=== PATIENT | male | born 1965 | race Caucasian/White ===

== ENCOUNTER 2019-02-21 07:54 | Outpatient (CLI) | payer BC ==
--- NOTE | 2019-02-21 09:04 | ULT ---
US Abdominal HISTORY: Right-sided abdomen pain. COMPARISON: None. FINDINGS: Real-time imaging of the pelvis shows the gallbladder has been removed. The common duct is 5 to 6 mm. The liver measures 17 cm in length. The spleen measures 9.8 cm. The pancreas is almost completely obscured. Abdominal aorta and IVC regions are normal. Right and left kidneys are within normal limits in size and not obstructed. IMPRESSION: Postcholecystectomy change.
== END 2019-02-21 07:55 | disposition home or self-care (01) ==
LOC: ULT 07:54
PROVIDERS: ATTEND Family Medicine
DX: N23 Unspecified renal colic (principal); Z90.49 Acquired absence of other specified parts of digestive tract
CPT/HCPCS: 76700

== ENCOUNTER 2019-11-27 12:56 | Outpatient (CLI) | payer BC ==
--- NOTE | 2019-11-27 13:33 | CT ---
Exam: Abdomen CT without contrast Pelvic CT without contrast HISTORY: Right flank pain. Nephrolithiasis. COMPARISON: None FINDINGS: Abdomen CT: Lung bases: Presumed chronic changes in the lung bases Heart size: Normal heart size. No significant pericardial fluid Aorta: Normal caliber. No periaortic fat stranding. Minimal atherosclerosis Solid organs: Limited evaluation by the lack of IV contrast. Grossly no solid organ abnormality Lymph nodes: No gastrohepatic, retrocrural or periportal lymphadenopathy Gallbladder: Surgically absent Mesentery: No mass, lymphadenopathy, free air or free fluid Kidneys: Bilaterally, no hydronephrosis, nephrolithiasis or perinephric fat stranding. Bilateral uret ers have a normal caliber. No hydroureter, periureteral fat stranding or ureterolithiasis. Alimentary canal: Limited evaluation due to lack of oral contrast. No evidence of bowel obstruction. Normal ileocecal junction. Normal caliber appendix. Scattered fecal material in a nondistended, nondilated colon. Occasional diverticulosis. No diverticulitis. CT PELVIS: No mass, adenopathy, free air or free fluid. Urinary bladder: Unremarkable. Osseous structures: No lytic or blastic lesions IMPRESSION: 1. No evidence of nephrolithiasis or obstructive uropathy. 2. Normal caliber. 3. Presumed chronic changes in the lung bases
== END 2019-11-27 12:57 | disposition home or self-care (01) ==
LOC: CT 12:56
PROVIDERS: ATTEND Family Medicine
DX: N20.0 Calculus of kidney (principal); R10.9 Unspecified abdominal pain
CPT/HCPCS: 74176

== ENCOUNTER 2023-07-18 12:02 | Outpatient (CLI) | payer BC | END 2023-07-18 12:03 | disposition home or self-care (01) | LOC: SCSRAD 12:02 | PROVIDERS: ATTEND Nurse Practitioner Family | DX: R06.02 Shortness of breath (principal); R91.1 Solitary pulmonary nodule | CPT/HCPCS: 71046 ==